=== PATIENT | male | born 1955 | race Caucasian/White ===

== ENCOUNTER 2024-04-06 19:54 | Emergency (ER) | payer MEDICARE ==
[2024-04-06 20:14] LABS: BASOPHILS ABSOLUTE AUTO 0.04 K/uL (0.00-0.10); BASOPHILS PERCENT AUTO 0.4 % (0.1-1.3); EOSINOPHILS ABSOLUTE AUTO 0.08 K/uL (0.00-0.40); EOSINOPHILS PERCENT AUTO 0.7 % (0.0-5.4); HEMATOCRIT 44.3 % (38.4-49.7); HEMOGLOBIN 16.2 g/dL (12.9-16.9); IMMATURE GRAN ABSOLUTE AUTO 0.03 K/uL (0.00-0.23); IMMATURE GRAN PERCENT AUTO 0.3 % (0.0-0.7); LYMPHOCYTES PERCENT AUTO 16.8 % (11.4-47.7); MEAN CORPUSCULAR HEMOGLOBIN 32.1 pg (31.6-35.5); MEAN CORPUSCULAR HGB CONC 36.6 g/dL (31.6-35.5); MEAN CORPUSCULAR VOLUME 87.9 fL (81.4-99.0); MONOCYTES ABSOLUTE AUTO 0.85 K/uL (0.20-0.90); NEUTROPHILS ABSOLUTE AUTO 7.89 K/uL (1.0-7.6); NEUTROPHILS PERCENT AUTO 73.8 % (40.0-78.1); PLATELET COUNT,PLT 179 K/uL (130-375); RED BLOOD CELL COUNT 5.04 M/uL (4.14-5.76); WHITE BLOOD CELL COUNT,WBC 10.7 K/uL (3.2-11.0)
[2024-04-06 20:31] LABS: A/G RATIO 1.2 (1.2-2.2); ALANINE AMINOTRANSFERASE,ALT 58 U/L (12-78); ALBUMIN 4.5 g/dL (3.4-5.0); ALKALINE PHOSPHATASE 88 U/L (46-116); ANION GAP 15.6 mmol/L (5.0-14.0); ASPARTATE AMNIOTRANSFERASE,AST 49 U/L (15-37); BILIRUBIN TOTAL 0.7 mg/dL (0.2-1.0); BLOOD UREA NITROGEN,BUN 46 mg/dL (7-18); CALCIUM 10.2 mg/dL (8.5-10.1); CARBON DIOXIDE,CO2 25 mmol/L (21-32); CHLORIDE,CL 103 mmol/L (100-108); ESTIMATED GFR 36 mL/min (>60); GLUCOSE RANDOM 141 mg/dL (74-106); POTASSIUM,K 4.6 mmol/L (3.6-5.2); PROTEIN TOTAL,TP 8.3 g/dL (6.4-8.2); SODIUM,NA 139 mmol/L (140-148)
[2024-04-06] MEDS: Morphine 4 MG/ML Syringe IVPUSH ONE (20:44)
[2024-04-06] MEDS: Aspirin 81 MG Tab.Chew PO ONE (20:44)
[2024-04-06 21:42] LABS: APPEARANCE,URINE CLEAR (CLEAR); BILIRUBIN,URINE NEGATIVE (NEGATIVE); COLOR,URINE YELLOW (YELLOW); GLUCOSE,URINE NEGATIVE (NEGATIVE); KETONES,URINE NEGATIVE (NEGATIVE); LEUKOCYTE ESTERASE,URINE NEGATIVE (NEGATIVE); NITRITE,URINE NEGATIVE (NEGATIVE); OCCULT BLOOD,URINE NEGATIVE (NEGATIVE); PH,URINE 5.5 (5.0-8.0); PROTEIN,URINE NEGATIVE (NEGATIVE); UROBILINOGEN,URINE 0.2 EU/dL (0.2-1.0)
[2024-04-06 22:10] LABS: BACTERIA,URINE NOT SEEN; EPITHELIAL CELLS,URINE RARE; MUCUS,URINE NOT SEEN; RBC,URINE NOT SEEN (0-5); WBC,URINE NOT SEEN (0-5)
[2024-04-06 22:13] LABS: AMORPHOUS SEDIMENT,URINE FEW
== END 2024-04-06 23:15 | disposition home or self-care (01) ==
LOC: JP.ED 19:54
DX: R07.89 Other chest pain (principal); I25.10 Atherosclerotic heart disease of native coronary artery without angina pectoris; I10 Essential (primary) hypertension; E78.00 Pure hypercholesterolemia, unspecified; E66.9 Obesity, unspecified; Z95.1 Presence of aortocoronary bypass graft; Z79.899 Other long term (current) drug therapy; Z79.02 Long term (current) use of antithrombotics/antiplatelets; Z88.0 Allergy status to penicillin; Z68.33 Body mass index [BMI] 33.0-33.9, adult
CPT/HCPCS: 36415; 80053; 81001; 84484; 85025; 93005; 96374; 99285; A9270; J2270; 93010